=== PATIENT | female | born 1955 | race Caucasian/White ===

== ENCOUNTER → 2020-04-04 11:50 | Outpatient (BNVA) | payer OTHER, SELFPAY | PROVIDERS: Visit Provider Family Medicine | DX: E04.1 Nontoxic single thyroid nodule (principal); E53.8 Deficiency of other specified B group vitamins; E55.9 Vitamin D deficiency, unspecified; I10 Essential (primary) hypertension; M19.90 Unspecified osteoarthritis, unspecified site; J45.20 Mild intermittent asthma, uncomplicated | CPT/HCPCS: 80053; 80061; 82306; 82607; 84439; 84443; 84481; 85025 ==

== ENCOUNTER → 2021-01-05 13:24 | Outpatient (BNVA) | payer OTHER, SELFPAY | PROVIDERS: Visit Provider Obstetrics & Gynecology | DX: Z12.4 Encounter for screening for malignant neoplasm of cervix (principal); Z12.39 Encounter for other screening for malignant neoplasm of breast; Z12.11 Encounter for screening for malignant neoplasm of colon | CPT/HCPCS: 88175 ==

== ENCOUNTER 2021-09-21 09:52 | Outpatient (CLI) | payer OTHER, SELFPAY ==
--- NOTE | 2021-09-21 10:19 | XR_ITS ---
WS: [id number] Exam: XR lumbar spine 2-3V* [id number] Date/Time of Exam: 09/21/2021 10:30 AM Reason For Exam: LUMBAR DENGERATIVE DISC DISEASE, FACET OSTEOARTHRITIS Comparison 03/11/2017. No acute fracture or dislocation. Facet arthropathy at all levels. Degenerative disc changes and mild spondylosis at all levels. Slight levoscoliosis. Mild degenerative anterolisthesis of L4 on L5. Larg e amount of retained stool in the colon. XR/XR lumbar spine 2-3V* [id number] IMPRESSION: 1. Moderately advanced degenerative changes. No fracture or malalignment. 2. Constipation.
--- NOTE | 2021-09-21 10:19 | XR_ITS ---
WS: [id number] Exam: XR cervical spine 3V* [id number] Date/Time of Exam: 09/21/2021 10:30 AM Reason For Exam: CERVICAL SPONDYLOLISTHESIS Comparison 08/27/2016. No acute fracture or dislocation. Marked spondylosis of C3 on C4 with degeneration of the intervening disc spaces. Posterior hypertrophic bone formation along C3 that may cause some spinal canal stenosi s. Partial developmental fusion of the posterior elements of C5 and C6. Marked facet arthropathy at a ll levels. Large anterior osteophytes at C3 and C4. Significant degenerative anterolisthesis of C7 on T1 with about 8 mm forward movement of C7. Mild degenerative anterolisthesis of C6 on C7. Paraspinal soft tissues are unremarkable. XR/XR cervical spine 3V* [id number] IMPRESSION: 1. Significant degenerative anterolisthesis of C7 on T1 with about 8 mm forward movement of C7. This may cause significant instability and/or spinal canal johnnie nosis. 2. Arthrosis and spondylosis of C3 and C4 which may also lead to some spinal ca nal stenosis at the C3 level. 3. Developmental fusion of the posterior elements of C5 and C6. 4. Advanced facet arthropathy and degenerative disc changes at multiple levels. Mild degenerative anterolisthesis of C6 on C7.
== END 2021-09-21 09:53 | disposition home or self-care (01) ==
LOC: RAD 09:59
PROVIDERS: Visit Provider Dermatology
DX: M51.36 Other intervertebral disc degeneration, lumbar region (principal); M43.12 Spondylolisthesis, cervical region; M47.816 Spondylosis without myelopathy or radiculopathy, lumbar region; M47.892 Other spondylosis, cervical region; K59.00 Constipation, unspecified
CPT/HCPCS: 72040; 72100

== ENCOUNTER → 2022-04-24 12:39 | Outpatient (BNVA) | payer MEDICARE, SELFPAY | PROVIDERS: Visit Provider Family Medicine | DX: I10 Essential (primary) hypertension (principal); E04.1 Nontoxic single thyroid nodule; M19.90 Unspecified osteoarthritis, unspecified site; R00.8 Other abnormalities of heart beat | CPT/HCPCS: 80053; 80061; 84443; 85025 ==

== ENCOUNTER 2022-05-04 15:12 | Outpatient (CLI) | payer MEDICARE, SELFPAY ==
--- NOTE | 2022-05-04 15:28 | MM_ITS ---
WS: [id number] BILATERAL 3D TOMOSYNTHESIS DIGITAL SCREENING MAMMOGRAPHY WITH CAD CLINICAL INFORMATION: Z12.31 - Encounter for screening mammogram for malignant ... HISTORY: Screening mammogram. No current complaints. COMPARISON: TECHNIQUE: Bilateral CC and MLO views. FINDINGS: Scattered fibroglandular densities bilaterally. No suspicious focal mass, asymmetry, calcifications, or architectural distortion. No evidence of malignancy. Incidental punctate and lucent centered calci fications. MM/[place] [id number] IMPRESSION: BI-RADS: 2-Benign FOLLOW UP: 1 Year Follow-up Recommend return to annual screening mammography.
== END 2022-05-04 15:13 | disposition home or self-care (01) ==
LOC: RAD 15:22
PROVIDERS: PCP Family Medicine; Visit Provider Family Medicine
DX: Z12.31 Encounter for screening mammogram for malignant neoplasm of breast (principal)
CPT/HCPCS: 77063; 77067

== ENCOUNTER → 2022-06-27 14:34 | Outpatient (BNVA) | payer MEDICARE, SELFPAY | PROVIDERS: PCP Family Medicine; Visit Provider Surgery | DX: K59.00 Constipation, unspecified (principal); Z80.0 Family history of malignant neoplasm of digestive organs | CPT/HCPCS: 99203 ==

== ENCOUNTER 2022-08-08 06:07 | Day surgery (SDC) | payer MEDICARE, SELFPAY ==
[2022-08-06 09:48] VITALS: BMI 31.1
[2022-08-08 06:36] VITALS: BP 160/79; PULSE 69; RESP 18; TEMP 36.3; O2SAT 99
[2022-08-08] MEDS: sodium chloride 0.9% 1,000 ML 30 ML IV (06:44)
--- NOTE | 2022-08-08 06:44 | P.ANESASSM_ITS ---
Pre-Anesthetic Assessment Height/Weight: Height 1.73 m Weight 92.986 kg Temp Pulse Resp BP Pulse Ox O2 Del Method 97.4 F L 69 18 160/79 99 Room Air 08/08/22 06:36 08/08/22 06:36 08/08/22 06:36 08/08/22 06:36 08/08/22 06:36 08/08/22 06:36 Preop Diagnosis: screening Operation Date: 08/08/22 07:30 Proposed Procedures p 56061 colon Z12.11, K59.00(Not Applicable) - Karl Gregory DO Last intake: Intake Last Liquid Date 08/07/22 Last Liquid Time 22:00 Last Solid Date 08/06/22 Social No alcohol and No tobacco Exam alert, oriented x 3, clear to auscultation bilaterally and regular rate & rhythm Airway Submandibular: within normal limits Cervical ROM: within normal limits Mallampati: Class II Dentition: full Pulmonary Asthma (3 weeks since inhaler use) CV/HEM Arrythmia (PVC's), Hypertension and Palpitations None reported Hepatic None reported GI constipated Metabolic Hyperlipidemia and Thyroid Disease (nodule) Musc/skel Osteoarthritis/DJD Neuropsych None reported Anesthetic Plan ASA status: 2 Anesthesia: MAC Medications/Allergies Home Medications Medication Instructions Recorded Confirmed Last Taken Type acetaminophen 650 mg 650 mg PO Q12H PRN Pain 12/16/19 08/06/22 08/07/22 History tablet,extended release (Tylenol Arthritis Pain) magnesium 250 mg tablet 250 mg PO DAILY 12/16/19 08/06/22 08/07/22 History multivitamin 1 cap PO DAILY 12/16/19 08/06/22 08/06/22 History albuterol sulfate 90 mcg/actuation 2 inh inhalation QID PRN shortness 04/04/20 08/06/22 07/18/22 Rx aerosol inhaler (Ventolin HFA) of breath or wheezing #18 grams loratadine 10 mg tablet (Allergy 10 mg PO DAILY #90 tabs 04/04/20 08/06/22 6 Months Ago Rx Relief (loratadine)) ~02/05/22 meloxicam 15 mg tablet 15 mg PO DAILY #30 tabs 04/24/22 08/06/22 08/06/22 Rx psyllium seed (sugar) oral powder 2 tbsp PO DAILY 04/24/22 08/06/22 1 Week Ago History (Metamucil (sugar) oral powder) ~07/30/22 amlodipine 5 mg tablet 5 mg PO DAILY #30 tabs 05/08/22 08/06/22 08/08/22 Rx atorvastatin 10 mg tablet (Lipitor) 10 mg PO DAILY #30 tabs 05/08/22 08/06/22 08/08/22 Rx metoprolol succinate 50 mg See Rx Instructions .Route 06/12/22 08/06/22 08/07/22 Rx tablet,extended release 24 hr .COMPLEX #30 tabs CoQ-10 08/06/22 08/06/22 History Allergies Allergy/AdvReac Type Severity Reaction Status Date / Time No Known Allergies Allergy Unverified 08/08/22 06:37 [facility] Anesthesia Medical History Asthma Diagnosed at the age of 5 and uses an albuterol inhaler as needed usually a couple of times a week every 3 to 4 months usually brought on by allergies and change of season. This is managed by PMD Hypertension Diagnosed in 2016 and is managed by her primary care provider through diet. No pertinent past medical history Patient denies history of: diabetes, asthma, seizures, DVT/PE PCP: Dr. Jiang Osteoarthritis Has joint pain and back pain for which she takes meloxicam and Tylenol medicine as needed. This is managed by primary care provider. Surgical History History of removal of cyst Pilonidal Cyst removal at age 17 History of tonsillectomy and adenoidectomy Done as a child S/P appendectomy States that she had an inguinal hernia repair and appendectomy as a child of 9 months. S/P inguinal hernia repair via a right lower quadrant incision-appendix was taken out at the same time. S/P left knee arthroscopy 11/09/[address] Hamilton Family History Mother Diabetes Hypertension Hyperlipidemia Heart disease Family/Other Diabetes maternal aunt Colon cancer maternal aunt, diagnosed in her 70s Father Hypertension Grandmother Stroke maternal Brother Heart disease Denies family history of DVT (deep venous thrombosis) Breast cancer Pulmonary embolism Uterine cancer Thyroid condition Social History Smoking and tobacco status: never smoked Second hand smoke exposure: No Alcohol intake: never Substance/Drug Use: never Current occupational status: retired Current gender identity: Female Special karlee needs: No Data Anesthesia Cardiac Studies: No Data to Display
--- NOTE | 2022-08-08 06:52 | PM.HP ---
Providers/Chief Complaint Primary Care Provider: Lola Jiang MD History of Present Illness Marifer Cortez is a 67 year old female here for colonoscopy Medications/Allergies Home Medications Medication Instructions Recorded Confirmed Last Taken Type acetaminophen 650 mg 650 mg PO Q12H PRN Pain 12/16/19 08/06/22 08/07/22 History tablet,extended release (Tylenol Arthritis Pain) magnesium 250 mg tablet 250 mg PO DAILY 12/16/19 08/06/22 08/07/22 History multivitamin 1 cap PO DAILY 12/16/19 08/06/22 08/06/22 History albuterol sulfate 90 mcg/actuation 2 inh inhalation QID PRN shortness 04/04/20 08/06/22 07/18/22 Rx aerosol inhaler (Ventolin HFA) of breath or wheezing #18 grams loratadine 10 mg tablet (Allergy 10 mg PO DAILY #90 tabs 04/04/20 08/06/22 6 Months Ago Rx Relief (loratadine)) ~02/05/22 meloxicam 15 mg tablet 15 mg PO DAILY #30 tabs 04/24/22 08/06/22 08/06/22 Rx psyllium seed (sugar) oral powder 2 tbsp PO DAILY 04/24/22 08/06/22 1 Week Ago History (Metamucil (sugar) oral powder) ~07/30/22 amlodipine 5 mg tablet 5 mg PO DAILY #30 tabs 05/08/22 08/06/22 08/08/22 Rx atorvastatin 10 mg tablet (Lipitor) 10 mg PO DAILY #30 tabs 05/08/22 08/06/22 08/08/22 Rx metoprolol succinate 50 mg See Rx Instructions .Route 06/12/22 08/06/22 08/07/22 Rx tablet,extended release 24 hr .COMPLEX #30 tabs CoQ-10 08/06/22 08/06/22 History Allergies Allergy/AdvReac Type Severity Reaction Status Date / Time No Known Allergies Allergy Unverified 08/08/22 06:37 PFSH Acute PFSH: Medical History Asthma Diagnosed at the age of 5 and uses an albuterol inhaler as needed usually a couple of times a week every 3 to 4 months usually brought on by allergies and change of season. This is managed by PMD Hypertension Diagnosed in 2017 and is managed by her primary care provider through diet. No pertinent past medical history Patient denies history of: diabetes, asthma, seizures, DVT/PE PCP: Dr. Jiang Osteoarthritis Has joint pain and back pain for which she takes meloxicam and Tylenol medicine as needed. This is managed by primary care provider. Surgical History History of removal of cyst Pilonidal Cyst removal at age 17 History of tonsillectomy and adenoidectomy Done as a child S/P appendectomy States that she had an inguinal hernia repair and appendectomy as a child of 9 months. S/P inguinal hernia repair via a right lower quadrant incision-appendix was taken out at the same time. S/P left knee arthroscopy 11/09/[address] Hamilton Family History Mother Diabetes Hypertension Hyperlipidemia Heart disease Family/Other Diabetes maternal aunt Colon cancer maternal aunt, diagnosed in her 70s Father Hypertension Grandmother Stroke maternal Brother Heart disease Denies family history of DVT (deep venous thrombosis) Breast cancer Pulmonary embolism Uterine cancer Thyroid condition Social History Smoking and tobacco status: never smoked Second hand smoke exposure: No Alcohol intake: never Substance/Drug Use: never Current occupational status: retired Current gender identity: Female Special karlee needs: No Vitals/I&O/Wt Last Vital Signs Temp 97.4 F L 08/08/22 06:36 Pulse 69 08/08/22 06:36 Resp 18 08/08/22 06:36 BP 160/79 08/08/22 06:36 Pulse Ox 99 08/08/22 06:36 O2 Del Method Room Air 08/08/22 06:36 Weight last 48 hrs Weight 205 lb A&P Assessment and plan (1) Colon cancer screening: Plan Colonoscopy Attestations Medical Necessity Statement*: Home Coding Level of Care Code Acute Code for Chg Fwd Diagnoses Colon cancer screening Z12.11
[2022-08-08 08:03] VITALS: BP 129/57; PULSE 67; RESP 16; TEMP 36.1; O2SAT 97
[2022-08-08 08:11] VITALS: BP 148/79; PULSE 73; RESP 18; O2SAT 96
--- NOTE | 2022-08-08 15:00 | ANE.PACU2 ---
Inpatient post-anesthesia follow up: Airway intact: Yes Vital signs: Temperature 97.0 F Pulse Rate 73 Respiratory Rate 18 Blood Pressure 148/79 Pulse Oximetry 96 Oxygen Delivery Me thod Room Air Oxygen Flow Rate Fraction of Inspir ed Oxygen Hydration adequate: Yes Nausea and vomiting: No Pain level: 2 Mental status: Baseline
== END 2022-08-08 08:42 | disposition home or self-care (01) ==
PROVIDERS: PCP Family Medicine; Visit Provider Surgery
PROC: 0DJD8ZZ Inspection of Lower Intestinal Tract, Via Natural or Artificial Opening Endoscopic (ICD-10-PCS; CPT 45378; principal; 2022-08-08 07:30)
DX: Z12.11 Encounter for screening for malignant neoplasm of colon (principal); K64.8 Other hemorrhoids; Z80.0 Family history of malignant neoplasm of digestive organs; J45.909 Unspecified asthma, uncomplicated; I49.3 Ventricular premature depolarization; I10 Essential (primary) hypertension; R00.2 Palpitations; E78.5 Hyperlipidemia, unspecified; E03.9 Hypothyroidism, unspecified
CPT/HCPCS: G0105; G0121; J2704; J7030

== ENCOUNTER → 2022-09-17 09:58 | Outpatient (BNVA) | payer MEDICARE, SELFPAY | PROVIDERS: PCP Family Medicine; Visit Provider Family Medicine | DX: I10 Essential (primary) hypertension (principal); E78.5 Hyperlipidemia, unspecified; M54.2 Cervicalgia | CPT/HCPCS: 80053; 80061; 84443; 85025 ==

== ENCOUNTER → 2023-05-20 09:30 | Outpatient (BNVA) | payer MEDICARE, SELFPAY | PROVIDERS: PCP Family Medicine; Visit Provider Family Medicine | DX: M54.2 Cervicalgia (principal); M54.50 Low back pain, unspecified; I10 Essential (primary) hypertension; E78.5 Hyperlipidemia, unspecified; E55.9 Vitamin D deficiency, unspecified; E78.2 Mixed hyperlipidemia; M54.41 Lumbago with sciatica, right side; G89.29 Other chronic pain; J45.20 Mild intermittent asthma, uncomplicated | CPT/HCPCS: 80053; 80061; 82306; 84443; 85025 ==

== ENCOUNTER 2023-05-22 10:30 | Outpatient (CLI) | payer MEDICARE, SELFPAY ==
--- NOTE | 2023-05-22 10:34 | XR_ITS ---
WS: [email or web address] XR lumbar spine 2-3V* [id number] REASON FOR EXAM: M54.50 - Low back pain, unspecified FINDINGS: 5 lumbar vertebrae. Moderate rotatory levoscoliosis of the lumbar spine. Relatively normal lordosis. No focal vertebral body abnormality. Mild to moderate narrowing of the intervertebral disc spaces L1- L5. Significant narrowing of the L5-S1 disc space. Endplate sclerosis and osteophytosis L1-S1. 6 mm of anterolisthesis of L4 in relation to L5. IMPRESSION: Significant multilevel degenerative spondylosis with some progression compared to 09/21/2021.
--- NOTE | 2023-05-22 10:34 | XR_ITS ---
WS: [id number] XR cervical spine 3V* [id number] REASON FOR EXAM: M54.2 - Cervicalgia FINDINGS: Straightening of the normal lordosis of the cervical spine. 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 There is severe narrowing of the C4-C5 disc space with significant elongation and anterior osteophyto sis of the C4 vertebral body and anterior osteophytosis of the C5 vertebral body with moderate narrow ing of the C5-C6 disc space. The C6-C7 disc space appears fused/congenital fusion. Facet joint at this level appears fused. 2.5 mm of anterolisthesis of T1 on T2. 1 to 2 mm of anterolisthesis of C5 on C6. 3.5 mm of anterolist hesis of C4 on C5. IMPRESSION: Severe multilevel degenerative spondylosis and congenital cervical fusions. Stable compared to 022.
== END 2023-05-22 10:31 | disposition home or self-care (01) ==
LOC: RAD 10:31
PROVIDERS: PCP Family Medicine; Visit Provider Family Medicine
DX: M54.50 Low back pain, unspecified (principal); M54.2 Cervicalgia; M47.812 Spondylosis without myelopathy or radiculopathy, cervical region; M47.816 Spondylosis without myelopathy or radiculopathy, lumbar region; M41.86 Other forms of scoliosis, lumbar region
CPT/HCPCS: 72040; 72100

== ENCOUNTER → 2024-03-17 12:00 | Outpatient (BNVA) | payer MEDICARE, SELFPAY | PROVIDERS: PCP Nurse Practitioner Family; Visit Provider Nurse Practitioner Family | DX: E04.1 Nontoxic single thyroid nodule (principal); I10 Essential (primary) hypertension; E78.2 Mixed hyperlipidemia | CPT/HCPCS: 80053; 80061; 84443; 85007; 85027 ==

== ENCOUNTER 2024-03-26 12:01 | Outpatient (CLI) | payer MEDICARE, SELFPAY ==
--- NOTE | 2024-03-26 12:15 | US_ITS ---
WS: [id number] THYROID ULTRASOUND HISTORY: E04.1 - Nontoxic single thyroid nodule COMPARISON: 10/18/2017 Right lobe: 3.0 cm x 2.9 cm x 3.9 cm (w x ap x l). Volume: 15.9 cm3. Enlarged heterogeneous RIGHT thyroid. There is a large mass essentially replacing the normal thyroid. Cystic and solid components with mild increased vascularity. Similar to prior studies. Left lobe: 1.5 cm x 1.5 cm x 4.3 cm (w x ap x l). Volume: 4.7 cm3. Heterogeneous thyroid. LEFT thyroid is enlarged and nodular also. Isthmus: 0.4 cm. US/US thyroid [id number] IMPRESSION: 1. Multinodular thyroid. Most significant enlargement involves the RIGHT thyro id lobe which is similar to the study from 2018. 2. No suspicious change in either thyroid for which biopsy should be directed.
== END 2024-03-26 12:02 | disposition home or self-care (01) ==
PROVIDERS: PCP Nurse Practitioner Family; Visit Provider Nurse Practitioner Family
DX: E04.2 Nontoxic multinodular goiter (principal)
CPT/HCPCS: 76536

== ENCOUNTER 2024-08-13 05:00 | Outpatient (RCR) | payer MEDICARE, SELFPAY | END 2024-09-12 23:59 | disposition home or self-care (01) | LOC: APT 05:00 | PROVIDERS: PCP Nurse Practitioner Family; Visit Provider Nurse Practitioner Family | DX: M25.569 Pain in unspecified knee (principal) | CPT/HCPCS: 97110; 97161 ==

== ENCOUNTER → 2024-08-24 10:21 | Outpatient (BNVA) | payer MEDICARE, SELFPAY | PROVIDERS: PCP Nurse Practitioner Family; Visit Provider Nurse Practitioner Family | DX: M25.561 Pain in right knee (principal) | CPT/HCPCS: 73562 ==

== ENCOUNTER 2024-09-13 05:00 | Outpatient (RCR) | payer MEDICARE, SELFPAY | END 2024-10-12 23:59 | disposition home or self-care (01) | LOC: APT 05:00 | PROVIDERS: Visit Provider Nurse Practitioner Family | DX: M25.561 Pain in right knee (principal) | CPT/HCPCS: 97110 ==

== ENCOUNTER 2024-09-13 05:00 | Outpatient (RCR) | payer MEDICARE, SELFPAY | END 2024-10-12 23:59 | disposition home or self-care (01) | LOC: APT 05:00 | PROVIDERS: Visit Provider Nurse Practitioner Family | DX: M54.12 Radiculopathy, cervical region (principal) | CPT/HCPCS: 97110; 97140; 97161; 97530 ==

== ENCOUNTER 2024-10-13 06:30 | Outpatient (RCR) | payer MEDICARE, SELFPAY | END 2024-11-12 23:59 | disposition home or self-care (01) | LOC: APT 06:30 | PROVIDERS: PCP Nurse Practitioner Family; Visit Provider Nurse Practitioner Family | DX: M25.561 Pain in right knee (principal) | CPT/HCPCS: 97110 ==

== ENCOUNTER 2024-10-13 06:30 | Outpatient (RCR) | payer MEDICARE, SELFPAY | END 2024-10-20 09:34 | disposition home or self-care (01) | LOC: APT 06:30 | PROVIDERS: Visit Provider Nurse Practitioner Family | DX: M54.12 Radiculopathy, cervical region (principal) | CPT/HCPCS: 97110; 97140; 97530 ==

== ENCOUNTER → 2024-10-21 13:55 | Outpatient (BNVA) | payer MEDICARE, SELFPAY | PROVIDERS: PCP Nurse Practitioner Family; Visit Provider Student in an Organized Health Care Education/Training Program | DX: M17.11 Unilateral primary osteoarthritis, right knee (principal) | CPT/HCPCS: 73560; 73565; 99204 ==

== ENCOUNTER 2024-11-13 06:30 | Outpatient (RCR) | payer MEDICARE, SELFPAY | END 2024-12-13 23:59 | disposition home or self-care (01) | LOC: APT 06:30 | PROVIDERS: PCP Nurse Practitioner Family; Visit Provider Nurse Practitioner Family | DX: M54.12 Radiculopathy, cervical region (principal) | CPT/HCPCS: 97110; 97530 ==

== ENCOUNTER → 2024-12-07 12:51 | Outpatient (BNVA) | payer MEDICARE, SELFPAY | PROVIDERS: PCP Nurse Practitioner Family; Visit Provider Nurse Practitioner Family | DX: E04.1 Nontoxic single thyroid nodule (principal); I10 Essential (primary) hypertension; E78.2 Mixed hyperlipidemia | CPT/HCPCS: 80053; 80061; 84443; 85025 ==

== ENCOUNTER 2024-12-14 06:30 | Outpatient (RCR) | payer MEDICARE, SELFPAY | END 2025-01-12 23:59 | disposition home or self-care (01) | LOC: APT 06:30 | PROVIDERS: PCP Nurse Practitioner Family; Visit Provider Nurse Practitioner Family | DX: M54.12 Radiculopathy, cervical region (principal) | CPT/HCPCS: 97110; 97530 ==

== ENCOUNTER → 2025-03-02 08:37 | Outpatient (BNVA) | payer MEDICARE, SELFPAY | PROVIDERS: PCP Clinical Nurse Specialist Adult Health; Visit Provider Clinical Nurse Specialist Adult Health | DX: E55.9 Vitamin D deficiency, unspecified (principal); I10 Essential (primary) hypertension; Z87.898 Personal history of other specified conditions; E78.2 Mixed hyperlipidemia; E53.8 Deficiency of other specified B group vitamins | CPT/HCPCS: 80053; 80061; 82306; 82607; 83036; 84443; 85025 ==

== ENCOUNTER → 2025-03-10 09:27 | Outpatient (BNVA) | payer MEDICARE, SELFPAY | PROVIDERS: PCP Clinical Nurse Specialist Adult Health; Visit Provider Student in an Organized Health Care Education/Training Program | DX: M17.11 Unilateral primary osteoarthritis, right knee (principal) | CPT/HCPCS: 99214 ==

== ENCOUNTER 2025-04-05 09:40 | Outpatient (CLI) | payer MEDICARE, SELFPAY ==
--- NOTE | 2025-04-05 10:00 | CT_ITS ---
WS: [id number] CT RIGHT KNEE, NONCONTRAST TECHNIQUE: Noncontrast CT of the RIGHT knee to include the RIGHT hip and ankle. CLINICAL INFORMATION: RIGHT TOTAL KNEE ARTHROPLASTY COMPARISON: None. DLP: 970.[address] scans at [facility] use at least one of these dose optimization techniques: automated exposure control; mA and/or kV adjustment per patient size (includes targeted exams where dose is matched to clinical indication); or iterative reconstruction. FINDINGS: Advanced arthritis RIGHT knee. Small suprapatellar effusion. Hypertrophic patella. Hypertrophic changes along the joint line. Fibroid uterus. Moderate degenerative narrowing both hips RIGHT greater than LEFT with subchondral cystic change. CT/CT knee RT [facility] [id number] IMPRESSION: Images obtained for preoperative purposes.
== END 2025-04-05 09:41 | disposition home or self-care (01) ==
LOC: RAD 09:42
PROVIDERS: PCP Clinical Nurse Specialist Adult Health; Visit Provider Student in an Organized Health Care Education/Training Program
DX: M25.569 Pain in unspecified knee (principal); M17.11 Unilateral primary osteoarthritis, right knee; M25.461 Effusion, right knee; M22.2X1 Patellofemoral disorders, right knee; M89.361 Hypertrophy of bone, right tibia; D25.9 Leiomyoma of uterus, unspecified
CPT/HCPCS: 73700